=== PATIENT | female | born 1990 | race African-American/Black ===

== ENCOUNTER 2023-10-13 11:29 | Emergency (ER) | payer BC ==
[~2023-10-13] VITALS: Ht 165.1 cm; Wt 69.0 kg
[2023-10-13 11:33] VITALS: O2SAT 100
[2023-10-13] MEDS: ACETAMINOPHEN 650MG/20.3ML UDC PO ONE (12:30)
[2023-10-13 14:13] VITALS: BP 114/72; PULSE 80; RESP 14; TEMP 99.5
== END 2023-10-13 14:14 | disposition home or self-care (01) ==
LOC: ER 12:04
DX: S09.90XA Unspecified injury of head, initial encounter (principal); Y04.0XXA Assault by unarmed brawl or fight, initial encounter; Y93.89 Activity, other specified; Y92.89 Other specified places as the place of occurrence of the external cause; Y99.8 Other external cause status
CPT/HCPCS: 81025; 70450; 99284; Z7610

== ENCOUNTER 2025-05-22 16:53 | Emergency (ER) | payer BC, MEDICAID, OTHER ==
[~2025-05-22] VITALS: Ht 165.1 cm; Wt 77.0 kg
[2025-05-22 16:57] VITALS: PULSE 89; RESP 16; O2SAT 100
[2025-05-22 17:02] VITALS: BP 123/66; TEMP 36.9; O2SAT 100
== END 2025-05-22 18:17 | disposition left against medical advice (07) ==
LOC: ER 16:53
DX: R51.9 Headache, unspecified (principal)
CPT/HCPCS: 99281; Z7610